=== PATIENT | male | born 1935 | race Caucasian/White ===

== ENCOUNTER 2017-06-18 14:27 | Emergency (ER) | payer MEDICARE ==
[2017-06-18 14:52] VITALS: BP 179/85
[2017-06-18] MEDS ORDERED: Tetan/Diph/Pertus SYR(Tdap)* 0.5 ML SYR(BOOSTRIX) use SYR IM ONE (15:13)
--- NOTE | 2017-06-18 16:08 | RAD ---
INDICATION: Left orbital trauma COMPARISON: None TECHNIQUE: Axial source images were acquired through the orbits. Coronal and sagittal reconstructed images were acquired. FINDINGS: Bones: There is no definitive acute facial bone fracture. However, the presence of retrobulbar air suggests an orbital fracture which most likely would involve the medial inferior choudhury of the no displaced fracture is seen. Orbits: The globes and intraconal structures appear intact. The optic nerves are symmetric. Extraocular muscles appear normal. There is no intraconal inflammatory change or retrobulbar mass. As noted above there is a small amount of retrobulbar emphysema. There is also significant emphysema anterior to the globe and under the eyelid. There is mild left-sided proptosis. Paranasal sinuses: The is bilateral ethmoid sinus mucosal thickening. There is circumferential mucosal thickening in both maxillary antra with this short air-fluid level in left maxillary antra. The frontal and ethmoid air cells are clear. Brain: There are no acute abnormalities of the visualized brain parenchyma. Soft tissues: Mild left periorbital soft tissue swelling Other: None The visualized soft tissue elements about the neck appear normal. IMPRESSION: 1. There is significant emphysema both anterior to the globe and and retrobulbar locations suggesting an orbital fracture although a displaced fracture is not seen. The globe appears intact. There is mild left-sided proptosis 2. Findings of acute and chronic sinusitis with an air-fluid level in the left maxillary antrum.
--- NOTE | 2017-07-07 18:09 | ED ---
Donavan Holder Gabriel, scribed for Eitan Vargas MD on 06/18/17 at 1513 . Adult Trauma - HPI Summary HPI Summary: This patient is a 81 year old M presenting [place] [facility] accompanied by s/p fall earlier today. Pt reports he was going over a step and fell and hit near his right eye on a railing. The patient rates the pain 2/10 in severity. Patient reports eye pain, eye swelling, and epistaxis. Patient denies LOC. Patient had cataracts surgery in the same eye 2 years ago. - History of Current Complaint Chief Complaint: EDFacialInjury Stated Complaint: FALL, HIT HEAD Mechanism of Injury: Blunt Trauma - railing, Fall Ambulatory at the Scene: Yes Loss of Consciousness: no loss of consciousness Onset/Duration: Still Present Onset of Pain: Immediate Onset Severity: Mild Current Severity: Mild Pain Intensity: 2 Pain Scale Used: 0-10 Numeric Location: Head Associated Signs & Symptoms: Positive: Other: - epistaxis, swelling of orbit - Additional Pertinent History Primary Care Physician: - Allergy/Home Medications Allergies/Adverse Reactions: Allergies Allergy/AdvReac Type Severity Reaction Status Date / Time No Known Allergies Allergy Verified 06/18/17 14:40 PMH/Surg Hx/FS Hx/Imm Hx Previously Healthy: No Endocrine/Hematology History: Denies: Hx Diabetes Cardiovascular History: Denies: Hx Hypertension, Hx Pacemaker/ICD GI History: Reports: Hx Diverticulosis, Hx Hiatal Hernia - ABDOMINAL HERNIA, Other GI Disorders - DIVERTICULOSIS History: Reports: Other Problems/Disorders - BPH Denies: Hx Renal Disease Musculoskeletal History: Reports: Other Musculoskeletal History - RIGHT SHOULDER DISLOCATION 10/12 FOLLOWING A FALL Denies: Hx Rheumatoid Arthritis, Hx Osteoporosis Sensory History: Reports: Hx Cataracts - LEFT, Hx Contacts or Glasses - READING Denies: Hx Hearing Aid Opthamlomology History: Reports: Hx Cataracts - LEFT, Hx Contacts or Glasses - READING Neurological History: Reports: Other Neuro Impairments/Disorders - HX BIPOLAR Psychiatric History: Reports: Hx Bipolar Disorder - ON MEICATION Denies: Hx Panic Disorder - Cancer History Cancer Type, 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 TONSILS 1940. LEFT EYE CATARACT 11/11/15. Reverse shoulder replacement. Hx Anesthesia Reactions: Yes - SLIGHT CONFUSION FOR 2 WEEKS Infectious Disease History: No Infectious Disease History: Denies: History Other Infectious Disease, Traveled Outside the [place] in Last 30 Days - Family History Known Family History: Positive: Hypertension - Social History Lives: With Family Alcohol Use: None Alcohol Amount: 1/NIGHT Substance Use Type: Reports: None Smoking Status (MU): Never Smoked Tobacco Review of Systems Positive: Epistaxis Positive: Other - swelling and redness around left eye along with a laceration Neurological: Negative - LOC All Other Systems Reviewed And Are Negative: Yes Physical Exam - Summary Physical Exam Summary: Appearance: Well-appearing, Well-nourished Skin: Warm, Dry, No rash Eyes: Normal, PERRL, EOMI, sclera anicteric, laceration over the zygoma, swelling of conjunctiva left eye with a film over the eye, acuity of vision is less ENT: Normal Neck: Supple, nontender Respiratory: Clear to auscultation Cardiovascular: S1, S2, no murmur, no rub, no gallop Abdomen: Soft, nontender, no organomegaly Bowel sounds: Present Musculoskeletal: Normal, Strength/ROM Intact, no edema, pulses symmetrical Neurological: Normal, A&Ox3, cranial nerves II-XII WNL, follows commands, gait not tested, sensation intact to pin and light touch Psychiatric: affect normal, behavior appropriate, dressed appropriately, judgment intact GCS: 15 Triage Information Reviewed: Yes Vital Signs On Initial Exam: Initial Vitals Temp Pulse Resp BP Pulse Ox 97.1 F 71 17 179/85 98 06/18/17 14:35 06/18/17 14:35 06/18/17 14:35 06/18/17 14:35 06/18/17 14:35 Vital Signs Reviewed: Yes Procedures - Laceration/Wound Repair 1 Location: head Description: Irregular Anesthesia: Local, 1.0%, Lido Length, Depth and Shape: length of 2cm depth of to the fascia Betadine Prep?: No - Chlorprep Irrigated w/ Saline (ccs): 30 Laceration/Wound Explored: no foreign body removed Closure: Single Layer Suture Type: Nylon Number of Sutures: 4 Layer Closure?: No Sterile Dressing Applied?: Yes Diagnostics - Vital Signs Vital Signs Temp Pulse Resp BP Pulse Ox 06/18/17 14:35 97.1 F 71 17 179/85 98 - Laboratory Lab Statement: Any lab studies that have been ordered have been reviewed, and results considered in the medical decision making process. - CT orbital CT CT Interpretation Completed By: Radiologist - 1. There is significant emphysema both anterior to the globe and and retrobulbar locations suggesting an orbital fracture although a displaced fracture is not seen. The globe appears intact. There is mild left-sided proptosis 2. Findings of acute and chronic sinusitis with an air-fluid level in the left maxillary antrum. ED physician has reviewed this radiology report. Adult Trauma Course/Dx - Course Assessment/Plan: This patient is a 81 year old M presenting [place] [facility] accompanied by s/p fall earlier today. Pt reports he was going over a step and fell and hit near his right eye on a railing. The patient rates the pain 2/ 10 in severity. Patient reports eye pain, eye swelling, and epistaxis. Patient denies LOC. Patient had cataracts surgery in the same eye [address] reveals, per radiologist, 1. There is significant emphysema both anterior to the globe and and retrobulbar. locations suggesting an orbital fracture although a displaced fracture is not seen. The. globe appears intact. There is mild left-sided proptosis. 2. Findings of acute and chronic sinusitis with an air-fluid level in the left maxillary. antrum. In the ED course the patient was given Boostrix and the laceration was repaired. Patient will be discharged and follow up from ophthalmology. The patient is agreeable with this plan. - Diagnoses Provider Diagnoses: Facial laceration, emphysema of the orbit, Facial fracture Discharge - Discharge Plan Condition: Good Disposition: HOME Patient Education Materials: Laceration (ED) Referrals: Nicole Elliott MD [Primary Care Provider] - Additional Instructions: remove sutures one week, follow up with opthalmology The documentation as recorded by the Donavan finnegan Gabriel accurately reflects the service I personally performed and the decisions made by me, Eitan Vargas MD.
== END 2017-06-18 17:25 | disposition home or self-care (01) ==
LOC: ED 14:27
DX: S01.81XA Laceration without foreign body of other part of head, initial encounter (principal); W01.198A Fall on same level from slipping, tripping and stumbling with subsequent striking against other object, initial encounter; Y93.9 Activity, unspecified; Y92.9 Unspecified place or not applicable; Z23 Encounter for immunization; R04.0 Epistaxis; H05.89 Other disorders of orbit
CPT/HCPCS: 12011; 70480; 90471; 90715; 99282